=== PATIENT | male | born 1970 | race Caucasian/White ===

== ENCOUNTER 2019-03-06 12:20 | Emergency (ER) | payer SELFPAY ==
--- NOTE | 2019-03-06 12:38 | ER Report ---
History and Physical Time Seen By MD: 12:38 Hx. of Stated Complaint: PATIENT REPORTS HIGH BLOOD PRESSURE HPI/ROS CHIEF COMPLAINT: High blood pressure and numbness in fingers. HISTORY OF PRESENT ILLNESS: 48 year old male presents to ED stating he has had high blood pressure the past two days and he just feels "off". Reports he can feel it in his body when his blood pressure is elevated. He has a blood pressure monitor at home and his blood pressure has ranged from 150-160/90-100 the past two days. 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 He also reports that he just quit smoking two days ago. He smoked a pack of cigarettes on 03/04 and then completely stopped the next day. Patient experienced a headache yesterday, but it has since gone away. Patients states he took 3 tabs of 324mg aspirin today in case he was having a heart attack. Patient also reports numbness and tingling in his fourth and fifth fingers of his left hand. Patient states this started two days ago. Reports he has been on the computer more the past two days with work. Denies pain in the hand, wrist, elbow, or shoulder. REVIEW OF SYSTEMS: Constitutional: Denies fever, fatigue, appetite changes. HEENT: Denies vision changes. Respiratory: No cough, no dyspnea. Cardiovascular: No chest pain, no palpitations. Gastrointestinal: No vomiting, no abdominal pain. No diarrhea, constipation. Neuro: Denies dizziness. Musculoskeletal: No back pain. Numbness and tingling in the forth and fifth fingers of left hand. Allergies: Coded Allergies: No Known Drug Allergies (Unverified , 03/06/19) Past Medical/Surgical History Past medical hx significant for heart murmur and multiple bone fractures. No significant past surgical hx. Hx Smoking: Yes Smoking Status: Current: Every Day Smoker Hx Substance Use Disorder: No Constitutional Vital Sign - Last 24 Hours 03/06/19 03/06/19 03/06/19 03/06/19 12:24 12:27 12:50 14:02 Temp 97.5 Pulse 66 83 Resp 20 22 B/P (MAP) 166/97 166/97 (120) 156/86 (109) Pulse Ox 94 93 O2 Delivery Room Air Physical Exam General Appearance: The patient is alert, has no immediate need for airway protection and no current signs of toxicity. Eyes: Pupils equal and round no injection. Respiratory: Chest is non tender, lungs are clear to auscultation. Cardiac: regular rate and rhythm Gastrointestinal: Abdomen is soft and non tender, no masses, bowel sounds normal. Musculoskeletal: Neck: Neck is supple and non tender. Extremities have full range of motion and are non tender. Skin: No rashes or lesions. DIFFERENTIAL DIAGNOSIS: After history and physical exam differential diagnosis was considered for high blood pressure, stress, anxiety, smoking cessation, NM Medical Decision Making Data Points Result Diagram: 03/06/19 1300 03/06/19 1300 Laboratory Hematology Test 03/06/19 13:00 Red Blood Count 5.33 M/uL (4.00-5.60) Mean Corpuscular Volume 88.1 fL (80.0-96.0) Mean Corpuscular Hemoglobin 30.9 pg (26.0-33.0) Mean Corpuscular Hemoglobin Concent 35.1 g/dL (32.0-36.0) Red Cell Distribution Width 13.3 % (11.5-14.5) Mean Platelet Volume 7.6 fL (7.2-11.1) Neutrophils (%) (Auto) 58.0 % (39.4-72.5) Lymphocytes (%) (Auto) 32.8 % (17.6-49.6) Monocytes (%) (Auto) 7.6 % (4.1-12.4) Eosinophils (%) (Auto) 0.9 % (0.4-6.7) Basophils (%) (Auto) 0.7 % (0.3-1.4) Nucleated RBC Relative Count (auto) 0.1 /100WBC Neutrophils # (Auto) 3.6 K/uL (2.0-7.4) Lymphocytes # (Auto) 2.1 K/uL (1.3-3.6) Monocytes # (Auto) 0.5 K/uL (0.3-1.0) Eosinophils # (Auto) 0.1 K/uL (0.0-0.5) Basophils # (Auto) 0.0 K/uL (0.0-0.1) Nucleated RBC Absolute Count (auto) 0.00 K/uL Sodium Level 140 mmol/L (137-145) Potassium Level 3.9 mmol/L (3.5-5.0) Chloride Level 106 mmol/L (98-107) Carbon Dioxide Level 22 mmol/L (22-30) Blood Urea Nitrogen 14 mg/dl (9-21) Creatinine 0.90 mg/dl (0.66-1.25) Glomerular Filtration Rate Calc > 60.0 Random Glucose 106 mg/dl (75-110) Calcium Level 9.4 mg/dl (8.4-10.2) Total Bilirubin 0.6 mg/dl (0.2-1.3) Aspartate Amino Transf (AST/SGOT) 25 U/L (0-35) Alanine Aminotransferase (ALT/SGPT) 34 U/L (0-56) Alkaline Phosphatase 60 U/L (0-126) Troponin I < 0.012 ng/ml Total Protein 8.0 g/dl (6.3-8.2) Albumin 4.5 g/dl (3.5-5.0) Chemistry Test 03/06/19 13:00 White Blood Count 6.3 k/uL (4.5-11.0) Red Blood Count 5.33 M/uL (4.00-5.60) Hemoglobin 16.5 g/dL (14.0-18.0) Hematocrit 46.9 % (42.0-52.0) Mean Corpuscular Volume 88.1 fL (80.0-96.0) Mean Corpuscular Hemoglobin 30.9 pg (26.0-33.0) Mean Corpuscular Hemoglobin Concent 35.1 g/dL (32.0-36.0) Red Cell Distribution Width 13.3 % (11.5-14.5) Platelet Count 231 K/uL (150-450) Mean Platelet Volume 7.6 fL (7.2-11.1) Neutrophils (%) (Auto) 58.0 % (39.4-72.5) Lymphocytes (%) (Auto) 32.8 % (17.6-49.6) Monocytes (%) (Auto) 7.6 % (4.1-12.4) Eosinophils (%) (Auto) 0.9 % (0.4-6.7) Basophils (%) (Auto) 0.7 % (0.3-1.4) Nucleated RBC Relative Count (auto) 0.1 /100WBC Neutrophils # (Auto) 3.6 K/uL (2.0-7.4) Lymphocytes # (Auto) 2.1 K/uL (1.3-3.6) Monocytes # (Auto) 0.5 K/uL (0.3-1.0) Eosinophils # (Auto) 0.1 K/uL (0.0-0.5) Basophils # (Auto) 0.0 K/uL (0.0-0.1) Nucleated RBC Absolute Count (auto) 0.00 K/uL Glomerular Filtration Rate Calc > 60.0 Calcium Level 9.4 mg/dl (8.4-10.2) Total Bilirubin 0.6 mg/dl (0.2-1.3) Aspartate Amino Transf (AST/SGOT) 25 U/L (0-35) Alanine Aminotransferase (ALT/SGPT) 34 U/L (0-56) Alkaline Phosphatase 60 U/L (0-126) Troponin I < 0.012 ng/ml Total Protein 8.0 g/dl (6.3-8.2) Albumin 4.5 g/dl (3.5-5.0) EKG/Imaging EKG Interpretation 12 lead EKG: Rhythm:sinus bradycardia with a ventricular rate of 57 [place]: normal QRS: normal ST segments: normal Monitor Interpretation: Sinus Bradycardia Imaging Findings: Cardiac and hilar contour size is normal. No consolidation, nodule, or peribronchial inflammation. No pneumothorax, edema, or effusion. Thoracic spine multilevel endplate degeneration. IMPRESSION: No findings of acute cardiopulmonary disease. ED Course/Re-evaluation ED Course Upon arrival to the ED patient was admitted to an exam room, history and physical performed, and differentials considered. Reports he has had high blood pressure the past two days and he just feels "off". He has a blood pressure mo nitor at home and his blood pressure has ranged from 150-160/90-100 the past two days. Reports a lot of stress with work the past two day. He also reports that he just quit smoking two days ago. He smoked a pack of cigarettes on 03/04 and then completely stopped the next day. Patient experienced a headache yesterday, but it has since gone away. Patient also reports numbness and tingling in his fourth and fifth fingers of his left hand. Patient states this started two days ago. Reports he has been on the computer more the past two days with work. Denies pain in the hand, wrist, elbow, or shoulder. Denies nausea, vomiting, headache, blurry vision, chest pain, SOB, dizziness. Heart rate and rhythm regular. Lungs clear to auscultation. BP 166/97. EKG, chest x-ray, CBC, CMP, and troponin obtained. All labs within normal limits, troponin negative, EKG sinus bradycardia, and chest x-ray with no acute cardiopulmonary processes. Discussed the option of starting a blood pressure medication with the patient. He states he would like to try lifestyle modifications before being put on a medication. States he will start doing more cardio, eating healthier, quit smoking, and decreasing his salt intake. Will send patient home with info for primary care providers in [facility] in case he wants to establish care with somebody. Patient will be sent home with self care. He is in agreement with plan of care and has no further questions. Decision to Disposition Date: Mar 06, 2019 Decision to Disposition Time: 13:52 Depart Departure Latest Vital Signs Vital Signs Date Time Temp Pulse Resp B/P (MAP) Pulse Ox O2 Delivery O2 Flow Rate FiO2 03/06/19 14:02 156/86 (109) 03/06/19 12:50 83 22 93 03/06/19 12:24 97.5 Room Air Impression: Primary Impression: Elevated blood pressure reading without diagnosis of hypertension Additional Impression: Irritation of ulnar nerve Condition: Improved Disposition: HOME OR SELF-CARE Patient Instructions: Hypertension (ED) Additional Instructions: Please drink plenty of water and get plenty of rest. To help lower your blood pressure, decrease your salt intake, eat a balanced diet with a lot of fruits and vegetables, exercise regularly, stop smoking and keep checking your blood pressure at home. If you notice your blood pressure is not decreasing with lifestyle changes, follow-up with a primary care provider in [facility]. If you need help to stop smoking, you can get help from a primary care provider. Please return to the emergency room with any chest pain, difficulty breathing, or any other concerns. Problem Qualifiers Additional Impression: Irritation of ulnar nerve Laterality: left Qualified Codes: G56.22 - Lesion of ulnar nerve, left upper limb AZALIA DYKES Mar 06, 2019 12:38
[2019-03-06 13:12] LABS: PLATELET COUNT, AUTOMATED 231 K/uL (150-450)
--- NOTE | 2019-03-06 13:16 | EKG ---
FACILITY: [facility] PATIENT NAME: INDER BARRERA : [id number] MR: [id number] V: [id number] EXAM DATE: ORDERING PHYSICIAN: AZALIA DYKES TECHNOLOGIST: CRISTI Test Reason : HTN Blood Pressure : / mmHG Vent. Rate : 057 BPM Atrial Rate : 057 BPM P-R Int : 178 ms QRS Dur : 090 ms QT Int : 396 ms P-R-T Axes : 010 026 025 degrees QTc Int : 385 ms Sinus bradycardia with sinus arrhythmia Otherwise normal ECG No previous ECGs available Confirmed by Praneeth Mays ([id number]) on 03/06/2019 5:18:12 PM Referred By: DAYNA Confirmed By:Praneeth Ross
--- NOTE | 2019-03-06 13:43 | RADIOLOGY IMAGING REPORT ---
FACILITY: [facility] PATIENT NAME: Wood Walsh : 1970 MR: [id number] V: [id number] EXAM DATE: ORDERING PHYSICIAN: AZALIA DYKES TECHNOLOGIST: Location: [facility] [place] Patient: Wood Walsh : 1970 Visit/Account:[id number] Date of Sevice: 03/06/2019 Examination: CHEST PA LAT Comparison: None. History: Chest pain and shortness of the breath for 2 days. Findings: Cardiac and hilar contour size is normal. No consolidation, nodule, or peribronchial infla mmation. No pneumothorax, edema, or effusion. Thoracic spine multilevel endplate degeneration. IMPRESSION: No findings of acute cardiopulmonary disease. Report Dictated By: Da Johnson MD at 03/06/2019 1:37 PM Report E-Signed By: Da Johnson MD at 03/06/2019 1:39 PM WSN:[email or web address]
[2019-03-06 14:02] VITALS: BP 156/86
== END 2019-03-06 14:06 | disposition home or self-care (01) ==
LOC: ER 12:26
DX: G56.22 Lesion of ulnar nerve, left upper limb (principal); I10 Essential (primary) hypertension; F17.210 Nicotine dependence, cigarettes, uncomplicated
CPT/HCPCS: 71046; 82040; 82247; 82310; 82374; 82435; 82565; 82947; 84075; 84132; 84155; 84295; 84450; 84460; 84484; 84520; 85025; 93005; 99282